=== PATIENT | female | born 1995 | race African-American/Black ===

== ENCOUNTER 2018-09-08 21:15 | Emergency (ER) | payer MEDICAID, OTHER ==
[~2018-09-08] VITALS: Ht 177.8 cm; Wt 73.6 kg
[~2018-09-08 21:15] MED LIST: NATA300V2 IV
[2018-09-08 23:10] VITALS: BP 138/89
== END 2018-09-09 02:02 | disposition home or self-care (01) ==
LOC: EMS 21:16
DX: S80.02XA Contusion of left knee, initial encounter (principal); S49.92XA Unspecified injury of left shoulder and upper arm, initial encounter; M25.552 Pain in left hip; M54.2 Cervicalgia; V49.9XXA Car occupant (driver) (passenger) injured in unspecified traffic accident, initial encounter; Y93.89 Activity, other specified; Y92.89 Other specified places as the place of occurrence of the external cause; Y99.8 Other external cause status